=== PATIENT | female | born 2000 | race Caucasian/White ===

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

== ENCOUNTER 2025-04-05 08:25 | Emergency (ER) | payer BC, OTHER ==
--- NOTE | 2025-04-05 08:45 | ED ---
General Adult HPI - General Chief complaint: Syncope Stated complaint: Syncope-Head Injury Time Seen by Provider: 04/05/25 08:30 Source: patient, RN notes reviewed, old records reviewed Mode of arrival: ambulatory Limitations: no limitations - History of Present Illness Initial comments: This is a 24-year-old female who presents to the emergency department stating she passed out at work. Patient states that she does this about twice a year. Patient states today she was sitting in a computer felt like she was going to pass out and she went to sit down fell back and did bump her head on the desk on her way down. A staff member was there and watched according to the staff member she passed out for about 30 seconds she shook for about 5 seconds but when she started coming around she immediately recognized them within 15 seconds or so. Patient has no headache she states there is a bump on her head that is a little tender she denies any neck pain. Patient denies any other extremity pain. Patient denies any recent fever chills or cough. Patient denies being on her menstrual cycle. Patient denies any recent nausea or vomiting. - Related Data Home Medications Medication Instructions Recorded Confirmed Etonogestrel [Nexplanon] 68 mg SQ ONCE 04/10/20 04/10/20 Multivitamins, Thera [Multivitamin 1 tab PO HS 04/10/20 04/10/20 (formulary)] Allergies Allergy/AdvReac Type Severity Reaction Status Date / Time amoxicillin AdvReac Rash/Hives Verified 04/05/25 08:29 Review of Systems ROS Statement: Those systems with pertinent positive or pertinent negative responses have been documented in the HPI. ROS Other: All systems not noted in ROS Statement are negative. Past Medical History Past Medical History: Syncope History of Any Multi-Drug Resistant Organisms: None Reported Past Surgical History: No Surgical Hx Reported Past Psychological History: No Psychological Hx Reported Smoking Status: Never smoker Past Alcohol Use History: None Reported Past Drug Use History: None Reported General Exam - General Exam Comments Initial Comments: GENERAL: Patient is well-developed and well-nourished. Patient is nontoxic and well- hydrated and is in no acute distress. ENT: Neck is soft and supple. No significant lymphadenopathy is noted. Oropharynx is clear. Moist mucous membranes. Neck has full range of motion without eliciting any pain. Has a small mildly tender bump on the back of her head in the occipital region EYES: The sclera were anicteric and conjunctiva were pink and moist. Extraocular movements were intact and pupils were equal round and reactive to light. Eyelids were unremarkable. PULMONARY: Unlabored respirations. Good breath sounds bilaterally. No audible rales rhonchi or wheezing was noted. CARDIOVASCULAR: There is a regular rate and rhythm without any murmurs gallops or rubs. ABDOMEN: Soft and nontender with normal bowel sounds. SKIN: Skin is clear with no lesions or rashes and otherwise unremarkable. NEUROLOGIC: Patient is alert and oriented x3. Cranial nerves II through XII are grossly intact. Motor and sensory are also intact. Normal speech, volume and content. Symmetrical smile. MUSCULOSKELETAL: Normal extremities with adequate strength and full range of motion. No lower e xtremity swelling or edema. No calf tenderness. LYMPHATICS: No significant lymphadenopathy is noted PSYCHIATRIC: Normal psychiatric evaluation. Limitations: no limitations Course Vital Signs 04/05/25 04/05/25 04/05/25 08:27 08:38 08:45 Temperature 97.5 F L Pulse Rate 103 H 92 Pulse Rate [ 87 Financial Institution President ] Pulse Rate [ Sitting] Pulse Rate [ Standing] Respiratory 98 H 16 Rate Blood Pressure 127/82 118/83 Blood Pressure [Sitting] Blood Pressure [Standing] Blood Pressure 107/72 [Supine] O2 Sat by Pulse 98 100 100 Oximetry 04/05/25 04/05/25 08:47 08:50 Temperature Pulse Rate Pulse Rate [ Financial Institution President ] Pulse Rate [ 94 Sitting] Pulse Rate [ 86 Standing] Respiratory Rate Blood Pressure Blood Pressure 115/79 [Sitting] Blood Pressure 113/83 [Standing] Blood Pressure [Supine] O2 Sat by Pulse 100 99 Oximetry Medical Decision Making - Medical Decision Making EKG is interpreted by myself EKG shows sinus rhythm at 97 bpm OH interval 164 QRS is 96 QT interval 350 QTc is 405. Patient's EKG shows no ST segment elevation or depression. Was pt. sent in by a medical professional or institution (, PA, PACKING ROOM SUPERVISOR, urgent care, hospital, or skilled nursing...) When possible be specific @ -No Did you speak to anyone other than the patient for history (EMS, parent, family, police, friend...)? What history was obtained from this source @ -No Did you review nursing and triage notes (agree or disagree)? Why? @ -I reviewed and agree with nursing and triage notes Were old charts reviewed (outside hosp., previous admission, EMS record, old EKG, old radiological studies, urgent care reports/EKG's, skilled nursing records)? Report findings @ -No old charts were reviewed Differential Diagnosis? @ -Differential Syncope: Valvular disease, hypertrophic cardiomyopathy, pulmonary embolism, tamponade, tachycardia, bradycardia, DC, hypovolemia, hemorrhage, dissection, anemia, intracranial hemorrhage, seizure, hypoglycemia, carbon monoxide poisoning, this is not meant to be an all-inclusive list. EKG interpreted by me (3pts min.). @ -As above X-rays interpreted by me (1pt min.). @ -None done CT interpreted by me (1pt min.). @ -None done U/S interpreted by me (1pt. min.). @ -None done What testing was considered but not performed or refused? (CT, X-rays, U/S, labs)? Why? @ -None What meds were considered but not given or refused? Why? @ -None Did you discuss the management of the patient with other professionals (professionals i.e. , PA, PACKING ROOM SUPERVISOR, lab, RT, psych nurse, social media marketing analyst, caretaker grounds, teacher, chief nursing officer, lead case manager)? Give summary @ -No Was smoking cessation discussed for >3mins.? @ -No Was critical care preformed (if so, how long)? @ -No Were there social determinants of health that impacted care today? How? (Homelessness, low income, unemployed, alcoholism, drug addiction, transportation, low edu. Level, literacy, decrease access to med. care, [facility], rehab)? @ -No Was there de-escalation of care discussed even if they declined (Discuss DNR or withdrawal of care, Hospice)? DNR status @ -No What co-morbidities impacted this encounter? (DM, HTN, Smoking, COPD, CAD, Cancer, CVA, ARF, Chemo, Hep., AIDS, mental health diagnosis, sleep apnea, morbid obesity)? @ -None Was patient admitted / discharged? Hospital course, mention meds given and route, prescriptions, significant lab abnormalities, going to OR and other pertinent info. @ -Patient had orthostatics done in the emergency department they were normal. Patient was given a liter of fluid. Patient had no more symptoms while emerg ency department I went back in to evaluate her and she was feeling much better. Undiagnosed new problem with uncertain prognosis? @ -No Drug Therapy requiring intensive monitoring for toxicity (Heparin, Nitro, Insulin, Cardizem)? @ -No Were any procedures done? @ -No Diagnosis/symptom? @ -Vasovagal syncope Acute, or Chronic, or Acute on Chronic? @ -Acute Uncomplicated (without systemic symptoms) or Complicated (systemic symptoms)? @ -Complicated Side effects of treatment? @ -No Exacerbation, Progression, or Severe Exacerbation? @ -No Poses a threat to life or bodily function? How? (Chest pain, USA, DC, pneumonia, PE, COPD, DKA, ARF, appy, cholecystitis, CVA, Diverticulitis, Homicidal, Suicid al, threat to staff... and all critical care pts) @ -No - Lab Data Result diagrams: 04/05/25 08:46 04/05/25 08:46 Lab Results 04/05/25 04/05/25 Range/Units 08:46 08:46 WBC 7.31 (4.50-10.00) 10*3/uL RBC 4.36 (4.10-5.20) 10*6/uL Hgb 13.5 (12.0-15.0) g/dL Hct 37.8 (37.2-46.3) % MCV 86.7 (80.0-97.0) fL MCH 31.0 (27.0-32.0) pg MCHC 35.7 (32.0-37.0) g/dL Plt Count 230 (140-440) 10*3/uL MPV 9.9 (9.5-12.2) fL Immature Gran % (Auto) 0.3 % Neutrophils % 72.1 % Lymphocytes % 15.5 % Monocytes % 10.0 % Eosinophils % 1.6 % Basophils % 0.5 % Immature Gran # 0.02 (0.00-0.04) 10*3/uL Neutrophils # 5.27 (1.80-7.70) 10*3/uL Lymphocytes # 1.13 (0.90-5.00) 10*3/uL Monocytes # 0.73 (0.20-1.00) 10*3/uL Eosinophils # 0.12 (0.04-0.35) 10*3/uL Basophils # 0.04 (0.00-0.10) 10*3/uL Sodium 141 (137-145) mmol/L Potassium 4.5 (3.5-5.1) mmol/L Chloride 106 (98-107) mmol/L Carbon Dioxide 23 (22-30) mmol/L Anion Gap 12 mmol/L BUN 13 (7-17) mg/dL Creatinine 0.55 (0.52-1.04) mg/dL Est GFR (CKD-EPI)AfAm >90 (>60 ml/min/1.73 sqM) Est GFR (CKD-EPI)NonAf >90 (>60 ml/min/1.73 sqM) Glucose 133 H (74-99) mg/dL Calcium 9.6 (8.4-10.2) mg/dL Magnesium 1.8 (1.6-2.3) mg/dL Total Bilirubin 0.4 (0.2-1.3) mg/dL AST 47 H (14-36) U/L ALT 67 H (4-34) U/L Alkaline Phosphatase 48 (38-126) U/L Total Protein 7.5 (6.3-8.2) g/dL Albumin 4.5 (3.5-5.0) g/dL Disposition Clinical Impression: Vasovagal syncope Disposition: HOME SELF-CARE Condition: Good Instructions (If sedation given, give patient instructions): Syncope (ED) Is patient prescribed a controlled substance at d/c from ED?: No Referrals: None,Stated [Primary Care Provider] - 1-2 days Forms: Area PCPs Time of Disposition: 09:54
[2025-04-05 08:49] VITALS: RESP 16
[2025-04-05 09:10] LABS: Basophils # (A) 0.04 10*3/uL (0.00-0.10); Basophils % (A) 0.5 %; Eosinophils # (A) 0.12 10*3/uL (0.04-0.35); Eosinophils % (A) 1.6 %; HCT 37.8 % (37.2-46.3); HGB 13.5 g/dL (12.0-15.0); Lymphocytes # (A) 1.13 10*3/uL (0.90-5.00); Lymphocytes % (A) 15.5 %; MCH 31.0 pg (27.0-32.0); MCHC 35.7 g/dL (32.0-37.0); MCV 86.7 fL (80.0-97.0); Monocytes # (A) 0.73 10*3/uL (0.20-1.00); Monocytes % (A) 10.0 %; Neutrophils # (A) 5.27 10*3/uL (1.80-7.70); Neutrophils % (A) 72.1 %; Platelet Count 230 10*3/uL (140-440); RBC 4.36 10*6/uL (4.10-5.20); RDW 12.5 % (11.5-14.5); WBC 7.31 10*3/uL (4.50-10.00)
[2025-04-05] MEDS: SODIUM CHLORIDE 0.9% 1,000 ML IV ONE (09:23)
[2025-04-05 09:34] LABS: ALT 67 U/L (4-34); AST 47 U/L (14-36); African American GFR (CKD) >90 (>60 ml/min/1.73 sqM); Albumin 4.5 g/dL (3.5-5.0); Alkaline Phosphatase 48 U/L (38-126); Anion Gap 12 mmol/L; Blood Urea Nitrogen 13 mg/dL (7-17); Calcium 9.6 mg/dL (8.4-10.2); Carbon Dioxide 23 mmol/L (22-30); Chloride 106 mmol/L (98-107); Glucose 133 mg/dL (74-99); Magnesium 1.8 mg/dL (1.6-2.3); Non-African American GFR(CKD) >90 (>60 ml/min/1.73 sqM); Potassium 4.5 mmol/L (3.5-5.1); Sodium 141 mmol/L (137-145); Total Protein 7.5 g/dL (6.3-8.2)
[2025-04-05 10:27] VITALS: BP 95/67; PULSE 92; TEMP 98
== END 2025-04-05 10:26 | disposition home or self-care (01) ==
LOC: EC 08:25
DX: R55 Syncope and collapse (principal); Z88.0 Allergy status to penicillin
CPT/HCPCS: 36415; 80053; 83735; 85025; 93005; 96360; 99284